=== PATIENT | female | born 2000 | race Caucasian/White ===

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

== ENCOUNTER 2019-09-21 10:51 | Emergency (ER) | payer BC, MEDICAID ==
[~2019-09-21] VITALS: Ht 165.1 cm; Wt 81.6 kg
--- NOTE | 2019-09-21 11:07 | NUR ---
PT TO ER BED 2
[2019-09-21 11:15] VITALS: BP 144/73
--- NOTE | 2019-09-21 11:20 | NUR ---
19/F BIB FAMILY C/O REDNESS , PAIN TO RIGHT BUTTOCK X 5 DAYS. PATIENT STATES PAIN OF 10/10 AT THIS TIME. PATIENT POSITIONED FOR COMFORT; HOB ELEVATED; BEDRAILS UP X1; BED DOWN. ER MD MADE AWARE OF PT STATUS.
[2019-09-21] MEDS ORDERED: LIDOCAINE 2% 1000 MG/50 ML VIAL INJ ONE (11:30)
[2019-09-21 12:26] VITALS: BP 135/75
--- NOTE | 2019-09-21 12:26 | NUR ---
Patient discharged with v/s stable. Written and verbal after care instructions given and explained. Patient alert, oriented and verbalized understanding of instructions. Ambulatory with steady gait. All questions addressed prior to discharge. ID band removed. Patient advised to follow up with PMD within 2 days for a wound check or follow up at urgent care or back here if unable to see PMD. Rx of Motrin 800mg, Bactrim DS, Tramadol 50mg given. Patient instructed to complete of all abx treatment for full 10 days. Patient educated to not drive while taking Tramadol since it may cause drowsiness. Pt provided with new dressings to change dressing daily. Opportunity to ask questions provided and answered.
== END 2019-09-21 12:26 | disposition home or self-care (01) ==
LOC: MED 11:26
DX: L02.31 Cutaneous abscess of buttock (principal)
CPT/HCPCS: 99283; J2001

== ENCOUNTER 2019-09-23 13:42 | Emergency (ER) | payer BC, MEDICAID ==
[~2019-09-23] VITALS: Ht 167.6 cm; Wt 72.6 kg
--- NOTE | 2019-09-23 13:49 | NUR ---
PT AMBULATED TO ER BED 06
[2019-09-23 13:53] VITALS: BP 124/61
--- NOTE | 2019-09-23 14:04 | NUR ---
19 Y/O F IN THE ED FOR A WOUND CHECK. PT WAS IN THE ED X5 DAYS AGO FOR AN ABCSESS ON THE COCCYX, DRAINED IN THE ED THAT DAY AND COVDERED WITH A BANDAGE. PT WAS TOLD TO RETURN TODAY FOR A WOUND CHECK. PT DENIES PAIN, STATES THERE HAS BEEN DRAINAGE THROUGHOUT THE WEEK. PT CONTINUES ON PRESCRIBED ABX. MITZIA
--- NOTE | 2019-09-23 14:05 | NUR ---
DR CARDONA AT BEDSIDE EXAMINING PATIENT.
--- NOTE | 2019-09-23 14:14 | NUR ---
Patient discharged with v/s stable. Written and verbal after care instructions given and explained. Patient verbalized understanding. Ambulatory with steady gait. All questions addressed prior to discharge. Advised to follow up with PMD.
== END 2019-09-23 14:14 | disposition home or self-care (01) ==
LOC: MED 13:42
DX: L76.34 Postprocedural seroma of skin and subcutaneous tissue following other procedure (principal); Y83.8 Other surgical procedures as the cause of abnormal reaction of the patient, or of later complication, without mention of misadventure at the time of the procedure
CPT/HCPCS: 99283

== ENCOUNTER 2021-12-09 16:17 | Emergency (ER) | payer BC, MEDICAID ==
[~2021-12-09] VITALS: Ht 159.3 cm; Wt 84.8 kg
[2021-12-09 16:51] VITALS: BP 142/80
--- NOTE | 2021-12-09 17:25 | NUR ---
PT AMB TO BED 9
[2021-12-09] MEDS ORDERED: cephALEXin 500 MG CAP PO ONE (18:10)
[2021-12-09 18:13] LABS: APPEARANCE,URINE BLOODY (CLEAR); BILIRUBIN,URINE 1+ (NEGATIVE); BLOOD, URINE 3+ (NEGATIVE); COLOR,URINE RED (YELLOW); LEUKOCYTE ESTERASE ,URINE 2+ (NEGATIVE); NITRITE, URINE POSITIVE (NEGATIVE); UGLUCOSE TRACE (NEGATIVE)
[2021-12-09 18:15] LABS: BASOPHILS % (AUTO) 0.3 % (0.0-2.0); EOSINOPHILS % (AUTO) 0.1 % (0.0-4.0); HEMATOCRIT 36.6 % (36-48); HEMOGLOBIN 12.4 g/dL (12.0-16.0); LYMPHOCYTES # (AUTO) 1.7 K/uL (2.5-16.5); LYMPHOCYTES % (AUTO) 11.6 % (20.5-51.1); MEAN CORPUSCULAR HEMOGLOBIN 32 pg (27-31); MEAN CORPUSCULAR HGB CONC 34 g/dL (33-37); MEAN CORPUSCULAR VOLUME 92.9 fL (80-94); MONOCYTES # (AUTO) 0.6 K/uL (0.8-1.0); PLATELET COUNT (AUTO) 226 K/uL (140-450); RED BLOOD CELL COUNT(AUTO) 3.93 MIL/uL (4.20-5.40); RED CELL DISTRIBUTION WIDTH 13.3 % (11.6-13.7); WHITE BLOOD COUNT (AUTO) 14.3 K/uL (4.8-10.8)
[2021-12-09 18:49] LABS: RBC,URINE TOO NUMEROUS TO COUN /HPF (0-5); WBC,URINE 0-5 /HPF (0-5)
[2021-12-09] MEDS ORDERED: CEPH-588 PO (19:16)
[2021-12-09] MEDS ORDERED: cephALEXin 500 MG CAP ONE (19:53)
--- NOTE | 2021-12-09 20:41 | NUR ---
patient given rhogam in the the right gluteus medius
[2021-12-09 21:41] VITALS: BP 118/78
--- NOTE | 2021-12-09 21:41 | NUR ---
Patient discharged with v/s stable. Written and verbal after care instructions given and explained. Patient alert, oriented and verbalized understanding of instructions. Ambulatory with steady gait. All questions addressed prior to discharge. ID band removed. Patient advised to follow up with PMD. Rx of keflex given. Patient educated on indication of medication including possible reaction and side effects. Work note provided but patient declined. Opportunity to ask questions provided and answered.
== END 2021-12-09 21:41 | disposition home or self-care (01) ==
LOC: MED 16:17
DX: O20.0 Threatened abortion (principal); O23.42 Unspecified infection of urinary tract in pregnancy, second trimester; I10 Essential (primary) hypertension; Z3A.16 16 weeks gestation of pregnancy
CPT/HCPCS: 36415; 76805; 81001; 81025; 84702; 85025; 86886; 86900; 86901; 87086; 96372; 99284; J2790; Q0092

== ENCOUNTER 2021-12-18 02:09 | Emergency (ER) | payer MEDICAID ==
[~2021-12-18] VITALS: Ht 157.5 cm; Wt 83.5 kg
[~2021-12-18 02:09] MED LIST: CEPH-588 PO
[2021-12-18 02:17] VITALS: BP 123/79
--- NOTE | 2021-12-18 02:29 | NUR ---
PT AMBULATED TO BED #7
[2021-12-18 02:57] LABS: APPEARANCE,URINE CLOUDY (CLEAR); BILIRUBIN,URINE NEGATIVE (NEGATIVE); BLOOD, URINE 3+ (NEGATIVE); COLOR,URINE RED (YELLOW); LEUKOCYTE ESTERASE ,URINE TRACE (NEGATIVE); NITRITE, URINE NEGATIVE (NEGATIVE); PH,URINE 6.5 (5.0-9.0); UGLUCOSE NEGATIVE (NEGATIVE)
[2021-12-18 03:01] LABS: RBC,URINE TOO NUMEROUS TO COUN /HPF (0-5)
[2021-12-18 03:47] LABS: BASOPHILS % (AUTO) 0.2 % (0.0-2.0); EOSINOPHILS # (AUTO) 0.1 K/uL (0-0.4); EOSINOPHILS % (AUTO) 0.5 % (0.0-4.0); HEMATOCRIT 35.1 % (36-48); HEMOGLOBIN 11.9 g/dL (12.0-16.0); LYMPHOCYTES # (AUTO) 2.2 K/uL (2.5-16.5); LYMPHOCYTES % (AUTO) 15.7 % (20.5-51.1); MEAN CORPUSCULAR HEMOGLOBIN 32 pg (27-31); MEAN CORPUSCULAR HGB CONC 34 g/dL (33-37); MEAN CORPUSCULAR VOLUME 93.5 fL (80-94); MONOCYTES # (AUTO) 0.8 K/uL (0.8-1.0); MONOCYTES % (AUTO) 5.7 % (1.7-9.3); NEUTROPHILS % (AUTO) 77.9 % (42.2-75.2); PLATELET COUNT (AUTO) 206 K/uL (140-450); RED BLOOD CELL COUNT(AUTO) 3.75 MIL/uL (4.20-5.40); WHITE BLOOD COUNT (AUTO) 14.2 K/uL (4.8-10.8)
[2021-12-18] MEDS ORDERED: NITR100C7 PO (04:15)
[2021-12-18 04:22] VITALS: BP 123/79
--- NOTE | 2021-12-18 04:22 | NUR ---
21YR OLD FEMALE BIB SELF C/O OF VAG BLEED X2 DAYS. PT IS 17 WEEKS PREG. NO ABD PAIN. NO PAIN WITH URINATION. PT WAS SEEN HERE FOR SAME C/O ON TUE. MOD BLEED NOTED. SATURATED PAD. CHAPONE WITH DR KAUR ON VISIUAL VAG AREA. MODERATE AMOUNT OF BLEED NOTED WITH MIN BLOOD CLOTS. SATURATED PAD WAS DISGARDED. DR KAUR AT BEDSIDE WITH ULTRASOUND. PT FINISHED ABX FOR UTI ON Tuesday. URINE OBTAINED AND SENT TO LAB. LAB AT BEDSIDE COLLECTING BLOOD. NO MED HX TO NOTE PT FIRST PREG
== END 2021-12-18 04:22 | disposition home or self-care (01) ==
LOC: MED 02:09
DX: O20.0 Threatened abortion (principal); Z3A.16 16 weeks gestation of pregnancy; Z79.899 Other long term (current) drug therapy
CPT/HCPCS: 36415; 81001; 85025; 87086; 99284

== ENCOUNTER 2021-12-28 07:43 | Inpatient (IN) | payer MEDICAID ==
[~2021-12-28] VITALS: Ht 190.5 cm; Wt 84.4 kg
[~2021-12-28 07:43] MED LIST changes: +NITR100C7 PO
--- NOTE | 2021-12-28 08:01 | NUR ---
Patient ambulated with steady gait to bed 9.
[2021-12-28 08:04] VITALS: BP 106/66
--- NOTE | 2021-12-28 08:24 | NUR ---
21 y/o female states she has vaginal bleeding that started this morning, she is currently 18 weeks and started having vaginal bleeding this morning at 0630. she has gone through 3 pads in the past 1.5 hours, she has spoken to her obgyn about this before as this is her 4th visit to the ER for vaginal bleeding and the OB told her that it is okay. she wants to check to make sure the baby is fine. patients mother at bedside no pmh nka
[2021-12-28 09:04] LABS: BASOPHILS % (AUTO) 0.2 % (0.0-2.0); EOSINOPHILS % (AUTO) 0.3 % (0.0-4.0); HEMATOCRIT 33.3 % (36-48); HEMOGLOBIN 11.1 g/dL (12.0-16.0); LYMPHOCYTES # (AUTO) 1.8 K/uL (2.5-16.5); LYMPHOCYTES % (AUTO) 13.8 % (20.5-51.1); MEAN CORPUSCULAR HEMOGLOBIN 31 pg (27-31); MEAN CORPUSCULAR HGB CONC 33 g/dL (33-37); MEAN CORPUSCULAR VOLUME 93.4 fL (80-94); MONOCYTES # (AUTO) 0.6 K/uL (0.8-1.0); MONOCYTES % (AUTO) 4.6 % (1.7-9.3); NEUTROPHILS # (AUTO) 10.8 K/uL (1.8-7.7); NEUTROPHILS % (AUTO) 81.1 % (42.2-75.2); PLATELET COUNT (AUTO) 248 K/uL (140-450); RED BLOOD CELL COUNT(AUTO) 3.56 MIL/uL (4.20-5.40); RED CELL DISTRIBUTION WIDTH 13.1 % (11.6-13.7); WHITE BLOOD COUNT (AUTO) 13.3 K/uL (4.8-10.8)
[2021-12-28] MEDS ORDERED: NACL 0.9% 1,000 ML IV ONE (09:05)
[2021-12-28 09:19] LABS: PROTHROMBIN TIME 9.3 secs (10.8-13.4)
[2021-12-28 09:28] LABS: ANION GAP 13.2 (8-16); CREATININE 0.6 mg/dL (0.6-1.3); POTASSIUM 4.2 mmol/L (3.5-5.1); TOTAL BILIRUBIN 0.2 mg/dL (0.0-1.0)
--- NOTE | 2021-12-28 09:42 | NUR ---
Dr Nguyen at bedside for ultrasound
[2021-12-28 09:43] LABS: APPEARANCE,URINE SL CLOUDY (CLEAR); BILIRUBIN,URINE NEGATIVE (NEGATIVE); BLOOD, URINE 3+ (NEGATIVE); COLOR,URINE RED (YELLOW); LEUKOCYTE ESTERASE ,URINE 2+ (NEGATIVE); NITRITE, URINE POSITIVE (NEGATIVE); PH,URINE 6.5 (5.0-9.0); UGLUCOSE NEGATIVE (NEGATIVE)
[2021-12-28 10:11] LABS: RBC,URINE >100 /HPF (0-5)
[2021-12-28 10:12] LABS: CALCIUM OXALATE CRYSTALS,UR None Seen /HPF (None Seen); COARSE GRANULAR CASTS,URINE None Seen /LPF (None Seen); FINE GRANULAR CASTS,URINE None Seen /LPF (None Seen); HYALINE CASTS, URINE None Seen /LPF (None Seen); OTHER CASTS, URINE None Seen /LPF (None Seen); OTHER CRYSTALS,URINE None Seen /HPF (None Seen); RED BLOOD CELL CASTS,URINE None Seen /LPF (None Seen); TRICHOMONAS,URINE None Seen /HPF (None Seen); TRIPLE PHOSPHATE CRYSTAL,UR None Seen /HPF (None Seen); URIC ACID CRYSTALS,URINE None Seen /HPF (None Seen); URINE AMORPHOUS URATE None Seen /HPF (None Seen); WAXY CASTS,URINE None Seen /LPF (None Seen); YEAST,URINE None Seen /HPF (None Seen)
--- NOTE | 2021-12-28 11:55 | NUR ---
Patient will be admitted to care of DR. STEEN. Admited to OB. Will go to room 202. Belongings list completed. Report to JANNIE VALENCIA.
[2021-12-28 12:12] VITALS: BP 126/72
[2021-12-28] MEDS: NACL 0.9% 1,000 ML IV SCH (18:16)
[2021-12-29] MEDS: NACL 0.9% 1,000 ML IV SCH ×3 (02:57→20:46)
--- NOTE | 2021-12-29 10:08 | NUR ---
PATIENT HAS BEEN SCREENED AND CATEGORIZED LOW NUTRITION RISK. PATIENT WILL BE SEEN WITHIN 7 DAYS OF ADMISSION. 01/03/[address]
[2021-12-29] MEDS ORDERED: ONDANSETRON 4 MG/2 ML VIAL IVP PRN (22:30)
[2021-12-30] MEDS ORDERED: SULF-58 PO (15:02)
[2021-12-30 15:13] LABS: BASOPHILS % (AUTO) 0.3 % (0.0-2.0); EOSINOPHILS % (AUTO) 0.2 % (0.0-4.0); HEMATOCRIT 27.5 % (36-48); HEMOGLOBIN 9.4 g/dL (12.0-16.0); LYMPHOCYTES % (AUTO) 15.8 % (20.5-51.1); MEAN CORPUSCULAR HEMOGLOBIN 32 pg (27-31); MEAN CORPUSCULAR HGB CONC 34 g/dL (33-37); MEAN CORPUSCULAR VOLUME 92.8 fL (80-94); MONOCYTES # (AUTO) 0.6 K/uL (0.8-1.0); MONOCYTES % (AUTO) 4.8 % (1.7-9.3); NEUTROPHILS # (AUTO) 10.1 K/uL (1.8-7.7); NEUTROPHILS % (AUTO) 78.9 % (42.2-75.2); PLATELET COUNT (AUTO) 224 K/uL (140-450); RED BLOOD CELL COUNT(AUTO) 2.96 MIL/uL (4.20-5.40); WHITE BLOOD COUNT (AUTO) 12.8 K/uL (4.8-10.8)
--- NOTE | 2021-12-31 11:07 | NUR ---
LATE ENTRY- IV NORMAL SALIEN DISCONTINUED AT 1155.
== END 2021-12-30 17:30 | disposition home or self-care (01) | DRG 566 ==
LOC: MED 07:43 → MTU 10:59 → MFCC 11:41
PROVIDERS: ADMIT Obstetrics & Gynecology; ATTEND Obstetrics & Gynecology
PROC: 3E0234Z Introduction of Serum, Toxoid and Vaccine into Muscle, Percutaneous Approach (ICD-10-PCS; principal; 2021-12-30)
DX: O20.0 Threatened abortion (principal); D62 Acute posthemorrhagic anemia; O23.42 Unspecified infection of urinary tract in pregnancy, second trimester; O23.512 Infections of cervix in pregnancy, second trimester; O26.892 Other specified pregnancy related conditions, second trimester; N39.0 Urinary tract infection, site not specified; Z20.822 Contact with and (suspected) exposure to COVID-19; Z67.11 Type A blood, Rh negative
CPT/HCPCS: 36415; 76805; 76817; 80053; 81001; 85025; 85610; 85730; 86886; 86900; 86901; 87086; 96360; 96372; 99285; J0696; J2790; J7030; J7060; Q0092

== ENCOUNTER 2022-04-13 17:10 | Inpatient (IN) | payer MEDICAID ==
[~2022-04-13] VITALS: Ht 160 cm; Wt 83.9 kg
[~2022-04-13 17:10] MED LIST changes: +SULF-58 PO
[2022-04-13 17:30] VITALS: BP 126/71
[2022-04-13] MEDS ORDERED: PREN-537 PO (17:52)
[2022-04-13] MEDS ORDERED: FERR-252 PO (17:52)
[2022-04-13] MEDS ORDERED: NIFEdipine 10 MG CAPLF PO SCH (20:55)
[2022-04-13] MEDS ORDERED: BETAMETH ACET/BETAMETH NA PH 30 MG/5 ML VIAL IM SCH (21:00)
[2022-04-14] MEDS: NIFEdipine 10 MG CAPLF PO SCH ×2 (03:57→09:53)
--- NOTE | 2022-04-14 09:18 | NUR ---
PATIENT HAS BEEN SCREENED AND CATEGORIZED LOW NUTRITION RISK. PATIENT WILL BE SEEN WITHIN 7 DAYS OF ADMISSION. 04/20/[address]
== END 2022-04-14 15:15 | disposition home or self-care (01) | DRG 566 ==
LOC: MFCC 17:10 → OBSVTOIN 20:42
PROVIDERS: ADMIT Obstetrics & Gynecology; ATTEND Obstetrics & Gynecology
DX: O99.013 Anemia complicating pregnancy, third trimester (principal); O24.410 Gestational diabetes mellitus in pregnancy, diet controlled; D50.9 Iron deficiency anemia, unspecified; Z3A.34 34 weeks gestation of pregnancy; Z20.822 Contact with and (suspected) exposure to COVID-19
CPT/HCPCS: 36415; 76817; J0702; Q0092

== ENCOUNTER 2022-04-14 21:55 | Observation (INO) | payer MEDICAID ==
[~2022-04-14] VITALS: Ht 160 cm; Wt 83.9 kg
[~2022-04-14 21:55] MED LIST changes: +FERR-252 PO; +PREN-537 PO
[2022-04-14] MEDS ORDERED: BETAMETH ACET/BETAMETH NA PH 30 MG/5 ML VIAL IM SCH (22:30)
[2022-04-14 22:41] VITALS: BP 115/67
== END 2022-04-14 23:15 | disposition home or self-care (01) ==
LOC: MLD 21:55
PROVIDERS: ADMIT Obstetrics & Gynecology; ATTEND Obstetrics & Gynecology
DX: O60.03 Preterm labor without delivery, third trimester (principal); Z3A.34 34 weeks gestation of pregnancy
CPT/HCPCS: 59025; 96372; G0378; J0702

== ENCOUNTER 2022-05-25 04:31 | Emergency (ER) | payer MEDICAID ==
[~2022-05-25] VITALS: Ht 160 cm; Wt 81.7 kg
[~2022-05-25 04:31] MED LIST changes: -CEPH-588 PO; -NITR100C7 PO; -SULF-58 PO
[2022-05-25] MEDS ORDERED: KETOROLAC 15 MG/ML VIAL IVP ONE (08:10)
[2022-05-25] MEDS ORDERED: KETOROLAC 15 MG/ML VIAL ONE (08:21)
--- NOTE | 2022-05-25 09:40 | NUR ---
RECEIVED REPORT AT 0830 FROM ANNIE RIVERA, [facility]. REFER TO PAPER CHARTING.
[2022-05-25 11:34] LABS: BASOPHILS % (AUTO) 0.2 % (0.0-2.0); HEMATOCRIT 39.5 % (36-48); HEMOGLOBIN 12.8 g/dL (12.0-16.0); LYMPHOCYTES # (AUTO) 0.8 K/uL (2.5-16.5); LYMPHOCYTES % (AUTO) 6.1 % (20.5-51.1); MEAN CORPUSCULAR HEMOGLOBIN 28 pg (27-31); MEAN CORPUSCULAR HGB CONC 32 g/dL (33-37); MEAN CORPUSCULAR VOLUME 87.6 fL (80-94); MONOCYTES # (AUTO) 0.4 K/uL (0.8-1.0); NEUTROPHILS # (AUTO) 12.2 K/uL (1.8-7.7); NEUTROPHILS % (AUTO) 90.7 % (42.2-75.2); PLATELET COUNT (AUTO) 256 K/uL (140-450); RED BLOOD CELL COUNT(AUTO) 4.51 MIL/uL (4.20-5.40); RED CELL DISTRIBUTION WIDTH 22.6 % (11.6-13.7); WHITE BLOOD COUNT (AUTO) 13.5 K/uL (4.8-10.8)
--- NOTE | 2022-05-25 11:42 | NUR ---
URINE COLLECTED AND WALKED TO LAB.
[2022-05-25 11:54] LABS: APPEARANCE,URINE CLEAR (CLEAR); BILIRUBIN,URINE NEGATIVE (NEGATIVE); BLOOD, URINE 2+ (NEGATIVE); COLOR,URINE YELLOW (YELLOW); LEUKOCYTE ESTERASE ,URINE 2+ (NEGATIVE); NITRITE, URINE NEGATIVE (NEGATIVE); PH,URINE 6.5 (5.0-9.0); UGLUCOSE NEGATIVE (NEGATIVE)
[2022-05-25 12:02] LABS: ALBUMIN 2.9 g/dL (3.4-5.0); CARBON DIOXIDE 23.3 mmol/L (21-32); CREATININE 0.7 mg/dL (0.6-1.3); POTASSIUM 4.3 mmol/L (3.5-5.1); TOTAL BILIRUBIN 0.7 mg/dL (0.0-1.0)
[2022-05-25 12:31] VITALS: BP_SYST 108; BP_SYST 148; BP_DIAS 69; BP_DIAS 88
[2022-05-25 13:23] LABS: RBC,URINE 11-20 (MOD) /HPF (0-5)
[2022-05-25] MEDS ORDERED: IBUP-1842 PO (13:29)
[2022-05-25] MEDS ORDERED: CEPH-588 PO (13:29)
[2022-05-25 13:36] VITALS: BP 111/70
--- NOTE | 2022-05-25 13:36 | NUR ---
Patient discharged with v/s stable. Written and verbal after care instructions ABOUT BILIARY COLIC AND URINARY TRACT INFECTION given and explained. Patient alert, oriented and verbalized understanding of instructions. Ambulatory with steady gait. All questions addressed prior to discharge. ID band removed. Patient advised to follow up with PMD. Rx of KEFLEX AND MOTRIN given. Patient educated on indication of medication including possible reaction and side effects. Opportunity to ask questions provided and answered.
== END 2022-05-25 13:36 | disposition home or self-care (01) ==
LOC: MED 04:31
DX: O86.20 Urinary tract infection following delivery, unspecified (principal); O99.63 Diseases of the digestive system complicating the puerperium; N39.0 Urinary tract infection, site not specified; K80.80 Other cholelithiasis without obstruction; Z79.899 Other long term (current) drug therapy
CPT/HCPCS: 36415; 76705; 76856; 80053; 81001; 81025; 83690; 85025; 87086; 99285; J1885; Q0092